=== PATIENT | male | born 1995 | race Caucasian/White ===

== ENCOUNTER 2018-07-13 19:32 | Inpatient (IN) | payer MEDICARE, MEDICAID ==
--- NOTE | 2018-07-13 20:05 | ED ---
Psychiatric Complaint - HPI Summary HPI Summary: This is scribe Cosme Attflori documenting for attending Saturnino Mao. Patient is a 23 y/o M presents to ED with SI lasting for ~1 month, worsening this date. Assoc. Sx: Depression, SI. Denies: HI, fever. Patient reports that he "wants to tie a rope around his neck and jump off the local bridge". PMHx: SI , attempts. I, Dr. Mao, personally performed the services described in this documentation as scribed in my presence and it is both accurate and complete. - History Of Current Complaint Chief Complaint: EDMentalHealth Time Seen by Provider: 07/13/18 19:57 Hx Obtained From: Patient Onset/Duration: Gradual Onset, Lasting Weeks, Still Present Timing: Constant Severity Currently: Severe Character: Depressed Aggravating Factor(s): Recent Stress Alleviating Factor(s): Nothing Related History: Positive For: Prior Psychiatric Issues Has Suicidal: Reports: Thoughts, With A Plan Has Homicidal: Denies: Thoughts - Allergies/Home Medications Allergies/Adverse Reactions: Allergies Allergy/AdvReac Type Severity Reaction Status Date / Time albuterol Allergy Unknown Verified 07/13/18 19:46 Reaction Details divalproex sodium Allergy Unknown Verified 07/13/18 19:46 [From Depakote] Reaction Details haloperidol [From Haldol] Allergy Vomiting Verified 07/13/18 19:46 aspirin AdvReac Vomiting Verified 07/13/18 19:46 diphenhydramine AdvReac Vomiting Verified 07/13/18 19:46 [From Benadryl] Home Medications: Home Medications NK [No Home Medications Reported] 07/13/18 [History Confirmed 07/13/18] PMH/Surg Hx/FS Hx/Imm Hx Endocrine/Hematology History: Denies: Hx Diabetes Cardiovascular History: Denies: Hx Coronary Artery Disease, Hx Hypertension Infectious Disease History: No Infectious Disease History: Denies: Traveled Outside the [place] in Last 30 Days - Family History Known Family History: Positive: Cardiac Disease, Other - POS: seizures - Social History Alcohol Use: Occasionally Hx Substance Use: No Substance Use Type: Reports: None Hx Tobacco Use: Yes Smoking Status (MU): Current Every Day Smoker Type: Cigarettes Review of Systems Negative: Fever Positive: Depressed, Other - POS: SI NEG: HI All Other Systems Reviewed And Are Negative: Yes Physical Exam - Summary Physical Exam Summary: VITAL SIGNS: Reviewed. GENERAL: Patient is a well-developed and nourished male who is lying comfortable in the stretcher. Patient is not in any acute respiratory distress. HEAD AND FACE: No signs of trauma. No ecchymosis, hematomas or skull depressions. No sinus tenderness. EYES: PERRLA, EOMI x 2, No injected conjunctiva, no nystagmus. EARS: Hearing grossly intact. Ear canals and tympanic membranes are within normal limits. MOUTH: Oropharynx within normal limits. NECK: Supple, trachea is midline, no adenopathy, no JVD, no carotid bruit, no c- spine tenderness, neck with full ROM. CHEST: Symmetric, no tenderness at palpation LUNGS: Clear to auscultation bilaterally. No wheezing or crackles. CVS: Regular rate and rhythm, S1 and S2 present, no murmurs or gallops appreciated. ABDOMEN: Soft, non-tender. No signs of distention. No rebound no guarding, and no masses palpated. Bowel sounds are normal. EXTREMITIES: FROM in all major joints, no edema, no cyanosis or clubbing. NEURO: Alert and oriented x 3. No acute neurological deficits. Speech is normal and follows commands. SKIN: Dry and warm Triage Information Reviewed: Yes Vital Signs On Initial Exam: Initial Vitals Temp Pulse Resp BP Pulse Ox 97.8 F 103 16 134/86 94 07/13/18 19:40 07/13/18 19:40 07/13/18 19:40 07/13/18 19:40 07/13/18 19:40 Vital Signs Reviewed: Yes Diagnostics - Vital Signs Vital Signs Temp Pulse Resp BP Pulse Ox 07/13/18 19:40 97.8 F 103 16 134/86 94 - Laboratory Result Diagrams: 07/13/18 20:36 07/13/18 20:38 Lab Statement: Any lab studies that have been ordered have been reviewed, and results considered in the medical decision making process. Course/Dx - Course Assessment/Plan: Blood work without any significant abnormality except for urinalysis with positive UTI. Patient was given ciprofloxacin. Patient is medically clear. Patient is awaiting for mental health ablation. Patient will be signed out to Dr. Demarco who is the next ER attending. - Differential Dx/Clinical Impression Differential Diagnosis/HQI/PQRI: Positive: Depression Provider Diagnosis: Depression, UTI (urinary tract infection) Discharge - Sign-Out/Discharge Documenting (check all that apply): Sign-Out Patient Signing out patient TO: Keyona Demarco - Discharge Plan Referrals: No Primary Care Phys,NOPCP [Primary Care Provider] -
[2018-07-13 20:45] LABS: ABS Basophils 0.1 10^3/ul (0-0.2); ABS Eosinophils 0.1 10^3/ul (0-0.6); ABS Lymphocytes 2.4 10^3/ul (1.0-4.8); ABS Monocytes 0.7 10^3/ul (0-0.8); ABS Neutrophils 7.9 10^3/ul (1.5-7.7); ABS Nucleated RBC 0 10^3/ul; Eosinophil % 0.7 % (0-6); Hematocrit 49 % (42-52); Hemoglobin 16.4 g/dl (14.0-18.0); Lymphocyte % 21.8 % (25-47); Mean Corpuscular HGB Conc 34 g/dl (31-36); Mean Corpuscular Hemoglobin 29 pg (27-31); Mean Corpuscular Volume 86 fL (80-94); Mean Platelet Volume 8.4 um3 (7.4-10.4); Nucleated Red Blood Cells % 0.1; Platelet Count 291 10^3/ul (150-450); Red Blood Count 5.69 10^6/ul (4.00-5.40); Red Cell Distribution Width 13 % (10.5-15); White Blood Count 11.2 10^3/ul (3.5-10.8)
[2018-07-13 21:02] LABS: EGFR Non-African American 109.7 (>60)
[2018-07-13 21:14] LABS: Urine Appearance Cloudy; Urine Blood 1+ (Negative); Urine Color Yellow; Urine Ketones Negative (Negative); Urine Protein Negative (Negative); Urine Red Blood Cell 2+(6-10/hpf) (Absent); Urine Specific Gravity 1.028 (1.010-1.030); Urine Urobilinogen Negative (Negative); Urine White Blood Cell 3+(>20/hpf) (Absent)
[2018-07-13] MEDS ORDERED: Ciprofloxacin TAB* 250 MG PO ONE (21:42)
--- NOTE | 2018-07-14 06:12 | ED ---
Progress - Progress Note Progress Note: Patient received from Dr. Mao upon shift change pending MHE and disposition. Patient will be signed out to Dr. Guaman pending MHE and disposition. - Consult/PCP Time Called: 18:30 Course/Dx - Course Course Of Treatment: Patient received from Dr. Mao upon shift change pending MHE and disposition. Patient will be signed out to Dr. Guaman pending MHE and disposition. - Diagnoses Provider Diagnoses: Depression, UTI (urinary tract infection) Discharge - Sign-Out/Discharge Documenting (check all that apply): Sign-Out Patient, Receiving Sign-Out Signing out patient TO: Vahe Guaman - Upon shift change pending MHE and disposition Receiving patient FROM: Nelson Mao - Upon shift change pending MHE and disposition - Discharge Plan Condition: Stable Referrals: No Primary Care Phys,NOPCP [Primary Care Provider] - Attestations Scribe Attestation: This is david Pham documenting for attending Keyona Demarco MD. User Type: Provider with Scribe Provider Attestation: The documentation recorded by the scribe accurately reflects the service I personally performed and the decisions made by me.
--- NOTE | 2018-07-14 07:03 | ED ---
Progress - Progress Note Progress Note: Patient received from Dr. Mao upon shift change pending MHE and disposition. Patient will be signed out to Dr. Guaman pending MHE and disposition. 07:00- Pt received from Dr Demarco. He is awaiting transfer to [facility] Course/Dx - Course Course Of Treatment: Patient received from Dr. Mao upon shift change pending MHE and disposition. Patient will be signed out to Dr. Guaman pending MHE and disposition. - Diagnoses Provider Diagnoses: Depression, UTI (urinary tract infection), Unspecified psychosis Discharge - Sign-Out/Discharge Documenting (check all that apply): Patient Departure - Admitted, Receiving Sign -Out Receiving patient FROM: Keyona Demarco - Discharge Plan Condition: Stable Disposition: ADMITTED TO [facility]
--- NOTE | 2018-07-14 07:24 | PN ---
ED Flex Patient Progress Note Subjective: This is a 23 year-old M who is pending psychiatric RE-EVALUATION by Dr. Joseph today secondary to SI . He was also found to have a UTI upon initial evaluation. He does admit to urinary hesitation at times. Denies fever, chills, ab pain, flank pain, chest pain, SOB. Would like breakfast. Pt offers no complaints at this time. Objective: General NAD, Alert and oriented x3, resting on stretcher Heart: rrr S1/S2 Lungs: CTA BREATHING EASILY ab: + BS, SOFT NTTP Laboratory: Current laboratory results documented below. Assessment: 1) SI 2) UTI Plan: 1) Pending psychiatric eval. Will follow up daily _while in ED____. 2) WIll continue pt's cipro while here and he may receive additional med at d/c if he is d/c'd within that time frame. If additional sx present, further w/u may be warranted. No additional complaints to warrant further w/u at this time. Vital Signs Temp Pulse Resp BP Pulse Ox 97.8 F 103 16 134/86 94 07/13/18 19:40 07/13/18 19:40 07/13/18 19:40 07/13/18 19:40 07/13/18 19:40 Lab Results - Entire Visit 07/13/18 07/13/18 07/13/18 20:40 20:40 20:38 WBC RBC Hgb Hct MCV MCH MCHC RDW Plt Count MPV Neut % (Auto) Lymph % (Auto) Buchanan % (Auto) Eos % (Auto) Baso % (Auto) Absolute Neuts (auto) Absolute Lymphs (auto) Absolute Monos (auto) Absolute Eos (auto) Absolute Basos (auto) Absolute Nucleated RBC Nucleated RBC % Sodium 141 Potassium 3.9 Chloride 104 Carbon Dioxide 31 Anion Gap 6 BUN 19 Creatinine 0.87 Est GFR ( Amer) 132.8 Est GFR (Non-Af Amer) 109.7 BUN/Creatinine Ratio 21.8 H Glucose 100 Calcium 10.1 Total Bilirubin 0.40 AST 29 ALT 34 Alkaline Phosphatase 68 Total Protein 7.8 Albumin 4.9 Globulin 2.9 Albumin/Globulin Ratio 1.7 TSH 5.19 Urine Color Yellow Urine Appearance Cloudy Urine pH 5.0 Ur Specific Beebe 1.028 Urine Protein Negative Urine Ketones Negative Urine Blood 1+ A Urine Nitrate Negative Urine Bilirubin Negative Urine Urobilinogen Negative Ur Leukocyte Esterase Trace A Urine WBC (Auto) 3+(>20/hpf) A Urine RBC (Auto) 2+(6-10/hpf) A Urine Bacteria Absent Urine Glucose Negative Salicylates < 2.50 Urine Opiates Screen None detected Acetaminophen < 15 Ur Barbiturates Screen None detected Ur Phencyclidine Scrn None detected Ur Amphetamines Screen None detected U Benzodiazepines Scrn None detected Urine Cocaine Screen None detected U Cannabinoids Screen None detected Serum Alcohol < 10 07/13/18 20:36 WBC 11.2 H RBC 5.69 H Hgb 16.4 Hct 49 MCV 86 MCH 29 MCHC 34 RDW 13 Plt Count 291 MPV 8.4 Neut % (Auto) 70.7 Lymph % (Auto) 21.8 L Buchanan % (Auto) 6.1 Eos % (Auto) 0.7 Baso % (Auto) 0.7 Absolute Neuts (auto) 7.9 H Absolute Lymphs (auto) 2.4 Absolute Monos (auto) 0.7 Absolute Eos (auto) 0.1 Absolute Basos (auto) 0.1 Absolute Nucleated RBC 0 Nucleated RBC % 0.1 Sodium Potassium Chloride Carbon Dioxide Anion Gap BUN Creatinine Est GFR ( Amer) Est GFR (Non-Af Amer) BUN/Creatinine Ratio Glucose Calcium Total Bilirubin AST ALT Alkaline Phosphatase Total Protein Albumin Globulin Albumin/Globulin Ratio TSH Urine Color Urine Appearance Urine pH Ur Specific Beebe Urine Protein Urine Ketones Urine Blood Urine Nitrate Urine Bilirubin Urine Urobilinogen Ur Leukocyte Esterase Urine WBC (Auto) Urine RBC (Auto) Urine Bacteria Urine Glucose Salicylates Urine Opiates Screen Acetaminophen Ur Barbiturates Screen Ur Phencyclidine Scrn Ur Amphetamines Screen U Benzodiazepines Scrn Urine Cocaine Screen U Cannabinoids Screen Serum Alcohol
[2018-07-14] MEDS: Ciprofloxacin TAB* 500 MG PO SCH ×2 (09:58→22:28)
[2018-07-14] MEDS ORDERED: Al Hydrox/Mg Hydrox/Simet LIQ* 30 ML UDC PO PRN (14:42)
[2018-07-14] MEDS ORDERED: Acetaminophen TAB* 325 MG PO PRN (14:42)
[2018-07-15] MEDS: Vitamin THERAPEUTIC TAB PO SCH (11:00)
[2018-07-15] MEDS: Ciprofloxacin TAB* 500 MG PO SCH ×2 (11:00→22:04)
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
[2018-07-16] MEDS: Ciprofloxacin TAB* 500 MG PO SCH ×2 (09:22→21:44)
[2018-07-16] MEDS: Vitamin THERAPEUTIC TAB PO SCH (09:22)
--- NOTE | 2018-07-16 12:00 | PN ---
Subjective - Subjective Date of Service: 07/16/18 Service Type: 31722 Hosp care 25 min moderate complexity Subjective: I met with Josh today for the first time and he was cooperative and denying SI. "Oh no, I'm not looking to do anything like that. I just need some help getting out to [facility] near the [facility]. I lived there in a Boy[facility] Home when I was a kid and my brother, well I say he's my brother but he's really a friend of my brother, is there now." He goes on to request transfer to one of the facilities that used to hospitalize him when he was an adolescent , including [address] [place] [address] or "[place]." He indicates that he moved to this area two months ago from the [facility] and tried living with his twin brother in [place]. He was subsequently kicked out and then got asked to leave a homeless long term. He was hospitalized at [facility] for about a week but says they did not put him on medicine or place him in housing. "I didn't have no choice but to get on the road and hitch a ride here." He is willing to accept medication for his numerous stated mental health diagnoses, including bipolar, schizophrenia, ADHD, "explosive disorder" and mood swings. He claims to be allergic to Depakote and Haldol, while olanzapine made him suicidal and risperidone led to increased breast tissue. The patient is cooperative and good natured throughout the interaction. He denies violent thoughts towards himself or others and has been well-behaved on the unit. He is quite childlike and simplistic. Objective - Appearance Appearance: Well Developed/Nourished Dysmorphic Features: No Hygiene: Normal Grooming: Fairly Well Kept - Behavior Psychomotor Activities: Normal Exhibits Abnormal Movement: No - Attitude and Relatedness Attitude and Relatedness: Cooperative Eye Contact: Fair - Speech Quality: Unpressured Latencies: Normal Quantity: Appropriate - Mood Patient's Decription of Mood: "Good" - Affect Observed Affect: Good Affect Consistent with: Euthymia - Thought Process Patient's Thought Process: Coherent Thought Content: No Passive Wish, No Suicidal Planning, No Homicidal Ideation, No Paranoid Ideation - Sensorium Experiencing Hallucinations: No, Sensorium is Clear Type of Hallucinations: Visual: No, Auditory: No, Command: No - Level of Consciousness Level of Consciousness: Alert Orientation: Yes Intact, Yes Orientated to Time, Yes Orientated to Place, Yes Orientated to Person - Impulse Control Impulse Control: Tenuous - Insight and Judgement Insight and Judgement: Fair - Group Participation Particating in Group Activities: No - Medication Management Medication Management Adherence: Yes Assessment - Assessment Merits Inpatient Hospitalization: Consolidate Improvements, Pending Safe DC Plan Inpatient DSM-V Dx: F31.9 Clinical Impression: 23 y.o. single, homeless, itinerant, white male with a history of intellectual delay, mood instability, behavioral problems and childhood institutionalization arrives at our hospital on a voluntary basis seeking hospitalization for suicidal ideations to jump off a bridge, shortly after hitchhiking to this area from [place], where he's been residing the past two months. Plan - Plan Treatment Plan: Name: JOSH BURGOS Birthdate: 1995 [id number] We will start him on a trial of oral fluphenazine 5mg PO BID. He is requesting assistance returning to the [place], [place], along the [facility] where he spent part of his childhood in RTF settings. He certainly needs placement. His suicidality is of spurious nature and he does not seem to be at any risk to himself. Continued Medication Management: Start Medication Medications: Current Medications Acetaminophen (Tylenol Tab*) 650 mg PO Q4H PRN PRN Reason: for pain; or Temp >101 F Al Hydrox/Mg Hydrox/Simethicone (Maalox Plus*) 30 ml PO Q4H PRN PRN Reason: INDIGESTION Ciprofloxacin (Cipro Tab*) 500 mg PO Q12HR [facility] Last Admin: 07/16/18 09:22 Dose: 500 mg Multivitamins (Theragran Tab*) 1 tab PO DAILY [facility] Last Admin: 07/16/18 09:22 Dose: 1 tab - Discharge Plan Discharge Plan: Outpatient Follow Up Lab Results - Lab Results Lab Results: 07/13/18 07/13/18 07/13/18 20:36 20:38 20:40 WBC 11.2 H RBC 5.69 H Hgb 16.4 Hct 49 MCV 86 MCH 29 MCHC 34 RDW 13 Plt Count 291 MPV 8.4 Neut % (Auto) 70.7 Lymph % (Auto) 21.8 L [place] % (Auto) 6.1 Eos % (Auto) 0.7 Baso % (Auto) 0.7 Absolute Neuts (auto) 7.9 H Absolute Lymphs (auto) 2.4 Absolute Monos (auto) 0.7 Absolute Eos (auto) 0.1 Absolute Basos (auto) 0.1 Absolute Nucleated RBC 0 Nucleated RBC % 0.1 Sodium 141 Potassium 3.9 Chloride 104 Carbon Dioxide 31 Anion Gap 6 BUN 19 Creatinine 0.87 Est GFR ( Amer) 132.8 Est GFR (Non-Af Amer) 109.7 BUN/Creatinine Ratio 21.8 H Glucose 100 Calcium 10.1 Total Bilirubin 0.40 AST 29 ALT 34 Alkaline Phosphatase 68 Total Protein 7.8 Albumin 4.9 Globulin 2.9 Albumin/Globulin Ratio 1.7 TSH 5.19 Urine Color Yellow Urine Appearance Cloudy Urine pH 5.0 Ur Specific [place] 1.028 Urine Protein Negative Urine Ketones Negative Urine Blood 1+ A Urine Nitrate Negative Urine Bilirubin Negative Urine Urobilinogen Negative Ur Leukocyte Esterase Trace A Urine WBC (Auto) 3+(>20/hpf) A Urine RBC (Auto) 2+(6-10/hpf) A Urine Bacteria Absent Urine Glucose Negative Salicylates < 2.50 Urine Opiates Screen Acetaminophen < 15 Ur Barbiturates Screen Ur Phencyclidine Scrn Ur Amphetamines Screen U Benzodiazepines Scrn Urine Cocaine Screen U Cannabinoids Screen Serum Alcohol < 10 07/13/18 20:40 WBC RBC Hgb Hct MCV MCH MCHC RDW Plt Count MPV Neut % (Auto) Lymph % (Auto) [place] % (Auto) Eos % (Auto) Baso % (Auto) Absolute Neuts (auto) Absolute Lymphs (auto) Absolute Monos (auto) Absolute Eos (auto) Absolute Basos (auto) Absolute Nucleated RBC Nucleated RBC % Sodium Potassium Chloride Carbon Dioxide Anion Gap BUN Creatinine Est GFR ( Amer) Est GFR (Non-Af Amer) BUN/Creatinine Ratio Glucose Calcium Total Bilirubin AST ALT Alkaline Phosphatase Total Protein Albumin Globulin Albumin/Globulin Ratio TSH Urine Color Urine Appearance Urine pH Ur Specific [place] Urine Protein Urine Ketones Urine Blood Urine Nitrate Urine Bilirubin Urine Urobilinogen Ur Leukocyte Esterase Urine WBC (Auto) Urine RBC (Auto) Urine Bacteria Urine Glucose Salicylates Urine Opiates Screen None detected Acetaminophen Ur Barbiturates Screen None detected Ur Phencyclidine Scrn None detected Ur Amphetamines Screen None detected U Benzodiazepines Scrn None detected Urine Cocaine Screen None detected U Cannabinoids Screen None detected Serum Alcohol
[2018-07-16] MEDS: fluPHENAZine HCL TAB* 5 MG PO SCH (21:44)
[2018-07-17] MEDS: Ciprofloxacin TAB* 500 MG PO SCH ×2 (10:31→23:09)
[2018-07-17] MEDS: Vitamin THERAPEUTIC TAB PO SCH (10:32)
[2018-07-17] MEDS: fluPHENAZine HCL TAB* 5 MG PO SCH ×2 (10:32→23:09)
--- NOTE | 2018-07-17 12:12 | PN ---
Subjective - Subjective Date of Service: 07/17/18 Service Type: 33027 Hosp care 15 min low complexity Subjective: Josh no longer likes it here on the [facility] and says he's bored. He is requesting discharge but has no sense of where he would go if allowed to leave. "Probably to [place]...that's closer to [place]." He denies SI and has been under behavioral control on the unit. Objective - Appearance Appearance: Well Developed/Nourished Dysmorphic Features: No Hygiene: Normal Grooming: Fairly Well Kept - Behavior Psychomotor Activities: Normal Exhibits Abnormal Movement: No - Attitude and Relatedness Attitude and Relatedness: Child Like Eye Contact: Fair - Speech Quality: Unpressured Latencies: Normal Quantity: Appropriate - Mood Patient's Decription of Mood: "Fine" - Affect Observed Affect: Fair Affect Consistent with: Euthymia - Thought Process Patient's Thought Process: Coherent Thought Content: No Passive Wish, No Suicidal Planning, No Homicidal Ideation, No Paranoid Ideation - Sensorium Experiencing Hallucinations: No, Sensorium is Clear Type of Hallucinations: Visual: No, Auditory: No, Command: No - Level of Consciousness Level of Consciousness: Alert Orientation: Yes Intact, Yes Orientated to Time, Yes Orientated to Place, Yes Orientated to Person - Impulse Control Impulse Control: Poor - Insight and Judgement Insight and Judgement: Impaired - Group Participation Particating in Group Activities: No - Medication Management Medication Management Adherence: Partial Assessment - Assessment Merits Inpatient Hospitalization: Consolidate Improvements, Pending Safe DC Plan Inpatient DSM-V Dx: F31.9 Clinical Impression: 23 y.o. single, homeless, itinerant, white male with a history of intellectual delay, mood instability, behavioral problems and childhood institutionalization arrives at our hospital on a voluntary basis seeking hospitalization for suicidal ideations to jump off a bridge, shortly after hitchhiking to this area from [place], where he's been residing the past two months. Plan - Plan Treatment Plan: Name: JOSH BURGOS Birthdate: 1995 [id number] We have started him on a trial of oral fluphenazine 5mg PO BID. He is requesting assistance returning to the [facility] [place], [place], along the [place] where he spent part of his childhood in RTF settings. He certainly needs placement. [facility] tomorrow. Continued Medication Management: Start Medication Medications: Current Medications Acetaminophen (Tylenol Tab*) 650 mg PO Q4H PRN PRN Reason: for pain; or Temp >101 F Al Hydrox/Mg Hydrox/Simethicone (Maalox Plus*) 30 ml PO Q4H PRN PRN Reason: INDIGESTION Ciprofloxacin (Cipro Tab*) 500 mg PO Q12HR [facility] Last Admin: 07/17/18 10:31 Dose: 500 mg Fluphenazine HCl (Prolixin Tab*) 5 mg PO BID [facility] Last Admin: 07/17/18 10:32 Dose: Not Given Multivitamins (Theragran Tab*) 1 tab PO DAILY [facility] Last Admin: 07/17/18 10:32 Dose: 1 tab - Discharge Plan Discharge Plan: Inpatient Hospitalization
[2018-07-17] MEDS ORDERED: fluPHENAZine HCL TAB* 5 MG PO PRN (12:41)
[2018-07-17] MEDS ORDERED: diPHENhydraMINE PO* 50 MG PO PRN (12:42)
[2018-07-17] MEDS: LORazepam TAB(*) 1 MG PO PRN (12:48)
[2018-07-17] MEDS ORDERED: chlorproMAZINE INJ* 25 MG/ML 2 ML (50 MG) ONE (12:53)
[2018-07-17] MEDS ORDERED: LORazepam INJ* 2 MG/ML 1 ML VIAL ONE (12:53)
[2018-07-18] MEDS: Vitamin THERAPEUTIC TAB PO SCH (09:12)
[2018-07-18] MEDS: Ciprofloxacin TAB* 500 MG PO SCH ×2 (09:12→21:06)
[2018-07-18] MEDS: fluPHENAZine HCL TAB* 5 MG PO SCH ×2 (09:12→21:06)
--- NOTE | 2018-07-18 10:28 | PN ---
Subjective - Subjective Date of Service: 07/18/18 Service Type: [id number] Hosp care 15 min low complexity Subjective: Josh remains extremely childlike and impatient to leave the unit, although he cannot specify where he would go or how he would take care of himself. service has discovered that he most recently was connected to services in [facility] and has a case management assistant in [place], [place]. I met with him along with unit Toya Lio and he adamantly refuses to return to [place]. "I've been kicked out of every place there already. They said bad things about me and that 's why nobody in family wants to talk to me anymore." He continues to deny SI. Yesterday he did make a scene on the unit, wanting to leave, banging on the doors and smacking the lindquist loudly with his hands. He required prn fluphenazine and lorazepam, which he took by mouth. He agrees to call his case management assistant today and involve her with placement planning. Objective - Appearance Appearance: Well Developed/Nourished Dysmorphic Features: No Hygiene: Normal Grooming: Fairly Well Kept - Behavior Psychomotor Activities: Normal Exhibits Abnormal Movement: No - Attitude and Relatedness Attitude and Relatedness: Child Like Eye Contact: Poor - Speech Quality: Unpressured Latencies: Normal Quantity: Appropriate - Mood Patient's Decription of Mood: "Angry" - Affect Observed Affect: Labile Affect Consistent with: Euthymia - Thought Process Patient's Thought Process: Goal Directed Thought Content: No Passive Wish, No Suicidal Planning, No Homicidal Ideation, No Paranoid Ideation - Sensorium Experiencing Hallucinations: No, Sensorium is Clear Type of Hallucinations: Visual: No, Auditory: No, Command: No - Level of Consciousness Level of Consciousness: Alert Orientation: Yes Intact, Yes Orientated to Time, Yes Orientated to Place, Yes Orientated to Person - Impulse Control Impulse Control: Poor - Insight and Judgement Insight and Judgement: Impaired - Group Participation Particating in Group Activities: No - Medication Management Medication Management Adherence: Partial Assessment - Assessment Merits Inpatient Hospitalization: Consolidate Improvements, Pending Safe DC Plan Inpatient DSM-V Dx: F31.9 Clinical Impression: 23 y.o. single, homeless, itinerant, white male with a history of intellectual delay, mood instability, behavioral problems and childhood institutionalization arrives at our hospital on a voluntary basis seeking hospitalization for suicidal ideations to jump off a bridge, shortly after hitchhiking to this area from [place], where he's been residing the past two months. Plan - Plan Treatment Plan: Name: JOSH BURGOS Birthdate: 1995 [id number] We have started him on a trial of oral fluphenazine 5mg PO BID. He is homeless after leaving a boy's residence, presumably after aging out when he turned 23 in May. He certainly needs placement. [facility] d/c tomorrow, July 18. Continued Medication Management: Start Medication Medications: Current Medications Acetaminophen (Tylenol Tab*) 650 mg PO Q4H PRN PRN Reason: for pain; or Temp >101 F Al Hydrox/Mg Hydrox/Simethicone (Maalox Plus*) 30 ml PO Q4H PRN PRN Reason: INDIGESTION Ciprofloxacin (Cipro Tab*) 500 mg PO Q12HR [facility] Last Admin: 07/18/18 09:12 Dose: 500 mg Fluphenazine HCl (Prolixin Tab*) 5 mg PO BID [facility] Last Admin: 07/18/18 09:12 Dose: 5 mg Fluphenazine HCl (Prolixin Tab*) 5 mg PO Q6H PRN PRN Reason: AGITATION Last Admin: 07/17/18 12:54 Dose: 5 mg Lorazepam (Ativan Tab(*)) 2 mg PO Q6H PRN PRN Reason: ANXIETY Last Admin: 07/17/18 12:48 Dose: 2 mg Multivitamins (Theragran Tab*) 1 tab PO DAILY [facility] Last Admin: 07/18/18 09:12 Dose: 1 tab - Discharge Plan Discharge Plan: Outpatient Follow Up Lab Results - Lab Results Lab Results: 07/16/18 07/16/18 07:48 07:48 Hemoglobin A1c 5.2 Triglycerides 104 Cholesterol 200 LDL Cholesterol 130 HDL Cholesterol 49.1
[2018-07-18] MEDS: LORazepam TAB(*) 1 MG PO PRN (22:32)
[2018-07-19] MEDS: Vitamin THERAPEUTIC TAB PO SCH (10:41)
[2018-07-19] MEDS: fluPHENAZine HCL TAB* 5 MG PO SCH ×2 (10:41→23:08)
[2018-07-19] MEDS: Ciprofloxacin TAB* 500 MG PO SCH ×2 (10:41→23:08)
[2018-07-19] MEDS ORDERED: LORazepam TAB(*) 1 MG ONE (12:27)
[2018-07-19] MEDS ORDERED: chlorproMAZINE TAB* 100 MG ONE (12:27)
[2018-07-19] MEDS ORDERED: LORazepam INJ* 2 MG/ML 1 ML VIAL ONE (12:28)
[2018-07-19] MEDS ORDERED: chlorproMAZINE INJ* 25 MG/ML 2 ML (50 MG) ONE (12:29)
[2018-07-19] MEDS ORDERED: chlorproMAZINE INJ* 25 MG/ML 2 ML (50 MG) IM ONE (12:41)
[2018-07-19] MEDS ORDERED: LORazepam INJ* 2 MG/ML 1 ML VIAL IM ONE (12:43)
--- NOTE | 2018-07-19 12:59 | PN ---
Subjective - Subjective Date of Service: 07/19/18 Service Type: [id number] Hosp care 15 min low complexity Subjective: Patient escalated today during a discharge planning meeting with myself and SW Toya Vaca. He was demanding immediate discharge and was not willing to wait to allow us to set up safe aftercare and housing planning. He started making homicidal statements towards me and rushed towards me at one point saying he was going to punch me. Staff intervened and an emergency response code was called. The patient was manually restrained and taken down to the ground where he continued to attempt to bite and spit at staff. He received stat IM medications and was taken to his room. Objective - Appearance Appearance: Well Developed/Nourished Dysmorphic Features: No Hygiene: Mal-odorous Grooming: Disheveled - Behavior Psychomotor Activities: Normal Exhibits Abnormal Movement: No - Attitude and Relatedness Attitude and Relatedness: Hostile Eye Contact: Poor - Speech Quality: Pressured Latencies: Short Quantity: Terse - Mood Patient's Decription of Mood: "Angry" - Affect Observed Affect: Labile Affect Consistent with: Dysphoria - Thought Process Patient's Thought Process: Goal Directed Thought Content: Yes Homicidal Ideation, No Passive Wish, No Suicidal Planning, No Paranoid Ideation - Sensorium Experiencing Hallucinations: No, Sensorium is Clear Type of Hallucinations: Visual: No, Auditory: No, Command: No - Level of Consciousness Level of Consciousness: Alert Orientation: Yes Intact, Yes Orientated to Time, Yes Orientated to Place, Yes Orientated to Person - Impulse Control Impulse Control: Poor - Insight and Judgement Insight and Judgement: Impaired - Group Participation Particating in Group Activities: No - Medication Management Medication Management Adherence: Partial Assessment - Assessment Merits Inpatient Hospitalization: For Immediate Safety, For Stabilization Inpatient DSM-V Dx: F31.9 Clinical Impression: 23 y.o. single, homeless, itinerant, white male with a history of intellectual delay, mood instability, behavioral problems and childhood institutionalization arrives at our hospital on a voluntary basis seeking hospitalization for suicidal ideations to jump off a bridge, shortly after hitchhiking to this area from [place], where he's been residing the past two months. Plan - Plan Treatment Plan: Name: PRO BURGOS Birthdate: 1995 [id number] We have started him on a trial of oral fluphenazine 5mg PO BID. He appears to have an apartment and a rep-payee in [place], [place], although he does not want to return there. Patient may not have a choice. Will reassess tomorrow and see if he will take a shot of fluphenazine decanoate. [facility] d/c tomorrow, July 18, pending travel arrangements to [place], [place]. Continued Medication Management: Start Medication Medications: Current Medications Acetaminophen (Tylenol Tab*) 650 mg PO Q4H PRN PRN Reason: for pain; or Temp >101 F Al Hydrox/Mg Hydrox/Simethicone (Maalox Plus*) 30 ml PO Q4H PRN PRN Reason: INDIGESTION Ciprofloxacin (Cipro Tab*) 500 mg PO Q12HR [facility] Last Admin: 07/19/18 10:41 Dose: 500 mg Fluphenazine HCl (Prolixin Tab*) 5 mg PO BID [facility] Last Admin: 07/19/18 10:41 Dose: 5 mg Fluphenazine HCl (Prolixin Tab*) 5 mg PO Q6H PRN PRN Reason: AGITATION Last Admin: 07/17/18 12:54 Dose: 5 mg Lorazepam (Ativan Tab(*)) 2 mg PO Q6H PRN PRN Reason: ANXIETY Last Admin: 07/18/18 22:32 Dose: 2 mg Lorazepam (Ativan Inj*) 2 mg IM UC ONCE ONE Stop: 07/19/18 12:44 Multivitamins (Theragran Tab*) 1 tab PO DAILY [facility] Last Admin: 07/19/18 10:41 Dose: 1 tab - Discharge Plan Discharge Plan: Inpatient Hospitalization
[2018-07-20 08:04] VITALS: BP 121/61
[2018-07-20] MEDS: Ciprofloxacin TAB* 500 MG PO SCH (08:25)
[2018-07-20] MEDS: Vitamin THERAPEUTIC TAB PO SCH (08:26)
[2018-07-20] MEDS: fluPHENAZine HCL TAB* 5 MG PO SCH (08:26)
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
== END 2018-07-20 09:04 | disposition home or self-care (01) | DRG 886 ==
LOC: ED 19:32 → MERGE 07-14 14:42 → BSU 07-14 14:42
PROVIDERS: ADMIT Psychiatry & Neurology Psychiatry; ATTEND Psychiatry & Neurology Psychiatry
DX: F63.9 Impulse disorder, unspecified (principal); R45.851 Suicidal ideations; N39.0 Urinary tract infection, site not specified; F70 Mild intellectual disabilities; F90.9 Attention-deficit hyperactivity disorder, unspecified type; F17.210 Nicotine dependence, cigarettes, uncomplicated; F20.9 Schizophrenia, unspecified; F31.9 Bipolar disorder, unspecified; F64.9 Gender identity disorder, unspecified; Z88.8 Allergy status to other drugs, medicaments and biological substances; Z82.49 Family history of ischemic heart disease and other diseases of the circulatory system; Z72.89 Other problems related to lifestyle; Z59.0 Homelessness; Z56.0 Unemployment, unspecified
CPT/HCPCS: 36415; 80053; 80061; 80307; 80320; 80329; 81003; 81015; 83036; 84443; 85025; 87086; 99222; 99231; 99232; 99238; 99284; A9270-GY; G0480; J2060